=== PATIENT | female | born 1955 | race Caucasian/White ===

== ENCOUNTER 2018-12-06 09:54 | Day surgery (SDC) | payer MEDICARE, OTHER ==
[~2018-12-06] VITALS: Ht 167.6 cm; Wt 95.5 kg
[2018-12-06] MEDS ORDERED: CLARITIN-D 10 M1 T24 PO (10:37)
[2018-12-06] MEDS ORDERED: PROTONIX 40MG T40 MG PO (10:37)
[2018-12-06] MEDS ORDERED: VITAMIN B COMPL1 SGL PO (10:38)
[2018-12-06] MEDS ORDERED: VITRON-C (10:38)
[2018-12-06 10:43] VITALS: BP 142/77; PULSE 91; TEMP 98.1
[2018-12-06 12:25] VITALS: BP 148/74; PULSE 99; TEMP 97
--- NOTE | 2018-12-06 12:25 | NUR ---
PT AMBULATES FROM CART TO CHAIR IN BAY 5. PT DENIES C/O. VITAL SIGNS STABLE. PT DRINKING WATER. CALL LIGHT NEXT TO PT.
[2018-12-06 12:40] VITALS: BP 131/64; PULSE 77
--- NOTE | 2018-12-06 12:40 | NUR ---
PT CONTINUES TO DENY C/O. VITAL SIGNS STABLE. CALL LIGHT NEXT TO PT. PT FRIEND IN ROOM. PT DRINKING WATER.
[2018-12-06 12:42] VITALS: BP 124/78; PULSE 98
== END 2018-12-06 13:15 | disposition home or self-care (01) ==
LOC: SDCO 09:54
DX: K57.30 Diverticulosis of large intestine without perforation or abscess without bleeding (principal); D50.0 Iron deficiency anemia secondary to blood loss (chronic); K92.1 Melena; E66.9 Obesity, unspecified; Z98.84 Bariatric surgery status
CPT/HCPCS: J2250; J3010; J7030

== ENCOUNTER → 2024-04-02 | Outpatient (CLI) | payer MEDICARE, OTHER ==
[~2024-04-02] MED LIST: B-121000 MCG PO; CLARITIN-D 10 M1 T24 PO; FERRO-TIME325 MG PO; K-DUR 10 MEQ T10 MEQ PO; MICROZIDE12.5 MG PO; NEURONTIN300 MG/CAP PO; NORVASC 5MG5 MG/TAB PO; PROTONIX 40MG T40 MG PO; VITAMIN D 400400 IU PO; VITRON-C
== END ==
LOC: COL.LAB 16:00
DX: Z01.89 Encounter for other specified special examinations (principal)